=== PATIENT | male | born 1945 | race Caucasian/White ===

== ENCOUNTER → 2017-01-07 | Outpatient (REF) | payer MEDICARE, OTHER ==
[~2017-01-07] MED LIST: ADVI200C5 PO; ASPI81TA4 PO; CENTTAB PO; FLUTISP; LEVO125T3 PO; LIPI20TA PO; REST0.05 OU; VERA40TA PO; ZOMI5TAB4 PO; [UNRECOGNIZED DRUG - CODE] PO; claritan PO
[2017-01-07 16:19] LABS: ANION GAP 9 MEQ/L (8-16); BLOOD UREA NITROGEN 16 MG/DL (7-18); CALCIUM LEVEL 9.2 MG/DL (8.8-10.2); CARBON DIOXIDE LEVEL 27 MEQ/L (21-32); CHLORIDE LEVEL 107 MEQ/L (98-107); CREATININE FOR GFR 1.09 MG/DL (0.70-1.30); GLOMERULAR FILTRATION RATE > 60.0 (>42); GLUCOSE, FASTING 89 MG/DL (83-110); POTASSIUM SERUM 4.1 MEQ/L (3.5-5.1); SODIUM LEVEL 143 MEQ/L (136-145)
== END ==
LOC: M SFHCPLAZ 14:03
PROVIDERS: ATTEND Nurse Practitioner Family
DX: I10 Essential (primary) hypertension (principal)
CPT/HCPCS: 36415; 80048; 93005; G0463

== ENCOUNTER → 2017-02-14 | Outpatient (REF) | payer MEDICARE, OTHER ==
[2017-02-14 12:22] LABS: BASOPHILS 1 % (0-4)
[2017-02-14 12:36] LABS: ALBUMIN 3.9 GM/DL (3.2-5.2); ALBUMIN/GLOBULIN RATIO 1.34 (1.00-1.93); ALKALINE PHOSPHATASE 129 U/L (45-117); ALT/SGPT 26 U/L (12-78); ANION GAP 4 MEQ/L (8-16); AST/SGOT 16 U/L (15-37); BILIRUBIN,TOTAL 0.4 MG/DL (0.2-1.0); BLOOD UREA NITROGEN 12 MG/DL (7-18); CALCIUM LEVEL 9.1 MG/DL (8.8-10.2); CARBON DIOXIDE LEVEL 31 MEQ/L (21-32); CHLORIDE LEVEL 105 MEQ/L (98-107); CREATININE FOR GFR 1.03 MG/DL (0.70-1.30); GLOMERULAR FILTRATION RATE > 60.0 (>42); GLUCOSE, FASTING 72 MG/DL (83-110); SODIUM LEVEL 140 MEQ/L (136-145); TOTAL PROTEIN 6.8 GM/DL (6.4-8.2)
[2017-02-14 15:24] LABS: MEAN CORPUSCULAR HEMOGLOBIN 30.3 pg (27.0-33.0); MEAN CORPUSCULAR HGB CONC 33.1 g/dl (32.0-36.5); MEAN CORPUSCULAR VOLUME 91.4 fl (80.0-96.0); RED CELL DISTRIBUTION WIDTH 12.4 % (11.5-14.5)
== END ==
LOC: M SFHCPLAZ 10:04
PROVIDERS: ATTEND Family Medicine
DX: C91.10 Chronic lymphocytic leukemia of B-cell type not having achieved remission (principal); E55.9 Vitamin D deficiency, unspecified; N40.1 Benign prostatic hyperplasia with lower urinary tract symptoms
CPT/HCPCS: 36415; 80053; 82306; 83970; 85007; 85027; G0103; G0463

== ENCOUNTER → 2017-07-04 | Outpatient (REF) | payer MEDICARE, OTHER ==
[~2017-07-04] MED LIST changes: +ASPI81TA18 PO; -ASPI81TA4 PO; -LEVO125T3 PO; +LEVO125T4 PO; +ZOMI5TAB12 PO; -ZOMI5TAB4 PO
[2017-07-04 12:01] LABS: MEAN CORPUSCULAR HEMOGLOBIN 31.2 pg (27.0-33.0); MEAN CORPUSCULAR HGB CONC 34.3 g/dl (32.0-36.5); MEAN CORPUSCULAR VOLUME 90.9 fl (80.0-96.0); RED CELL DISTRIBUTION WIDTH 13.2 % (11.5-14.5); WHITE BLOOD COUNT 23.8 K/mm3 (4.0-10.0)
[2017-07-04 12:19] LABS: ALBUMIN/GLOBULIN RATIO 1.48 (1.00-1.93); ALKALINE PHOSPHATASE 116 U/L (45-117); ALT/SGPT 33 U/L (12-78); ANION GAP 10 MEQ/L (8-16); AST/SGOT 23 U/L (15-37); BILIRUBIN,TOTAL 0.4 MG/DL (0.2-1.0); BLOOD UREA NITROGEN 11 MG/DL (7-18); CALCIUM LEVEL 8.9 MG/DL (8.8-10.2); CARBON DIOXIDE LEVEL 25 MEQ/L (21-32); CHLORIDE LEVEL 107 MEQ/L (98-107); CHOLESTEROL LEVEL 121 MG/DL (<200); CREATININE FOR GFR 1.03 MG/DL (0.70-1.30); FREE T4 1.18 NG/DL (0.76-1.46); GLOMERULAR FILTRATION RATE > 60.0 (>42); GLUCOSE, FASTING 82 MG/DL (83-110); POTASSIUM SERUM 3.8 MEQ/L (3.5-5.1); SODIUM LEVEL 142 MEQ/L (136-145); TOTAL PROTEIN 6.7 GM/DL (6.4-8.2); TRIGLYCERIDES LEVEL 230 MG/DL (<150)
[2017-07-04 12:39] LABS: EOSINOPHILS 2 % (0-5)
[2017-07-04 13:40] LABS: SMUDGE CELLS 2+
[2017-07-05 14:17] LABS: PSA % FREE 26.8 % (.); PSA FREE 1.18 ng/mL; PSA TOTAL 4.4 ng/mL (0.0-4.0)
== END ==
LOC: M SFHCPLAZ 09:49
PROVIDERS: ATTEND Family Medicine
DX: C91.10 Chronic lymphocytic leukemia of B-cell type not having achieved remission (principal); E78.5 Hyperlipidemia, unspecified; E03.9 Hypothyroidism, unspecified; N40.1 Benign prostatic hyperplasia with lower urinary tract symptoms
CPT/HCPCS: 36415; 80053; 80061; 82550; 84154; 84439; 84443; 85007; 85027; 86140; G0463

== ENCOUNTER → 2017-10-21 | Outpatient (REF) | payer MEDICARE, OTHER ==
[2017-10-21 14:16] LABS: MEAN CORPUSCULAR HEMOGLOBIN 30.4 pg (27.0-33.0); MEAN CORPUSCULAR HGB CONC 32.7 g/dl (32.0-36.5); MEAN CORPUSCULAR VOLUME 92.9 fl (80.0-96.0); PLATELET COUNT, AUTOMATED 182 10^3/uL (150-450); RED CELL DISTRIBUTION WIDTH 12.7 % (11.5-14.5)
[2017-10-21 14:26] LABS: ADD MANUAL DIFFER YES; BLASTS POS FLAG; DIFF SLIDE NUMBER 286; POSITIVE DIFF POS FLAG; POSITIVE MORPH POS FLAG; WBC SCAT POS FLAG; WHITE BLOOD COUNT 26.8 10^3/uL (4.0-10.0)
[2017-10-21 14:44] LABS: ALBUMIN 4.2 GM/DL (3.2-5.2); ALBUMIN/GLOBULIN RATIO 1.35 (1.00-1.93); ALKALINE PHOSPHATASE 112 U/L (45-117); ALT/SGPT 33 U/L (12-78); ANION GAP 8 MEQ/L (8-16); AST/SGOT 18 U/L (7-37); BILIRUBIN,TOTAL 0.5 MG/DL (0.2-1.0); BLOOD UREA NITROGEN 13 MG/DL (7-18); CALCIUM LEVEL 9.4 MG/DL (8.8-10.2); CARBON DIOXIDE LEVEL 27 MEQ/L (21-32); CHLORIDE LEVEL 105 MEQ/L (98-107); CREATININE FOR GFR 1.03 MG/DL (0.70-1.30); FREE T4 1.08 NG/DL (0.76-1.46); GLOMERULAR FILTRATION RATE > 60.0 (>42); GLUCOSE, FASTING 80 MG/DL (83-110); SODIUM LEVEL 140 MEQ/L (136-145); TOTAL PROTEIN 7.3 GM/DL (6.4-8.2)
[2017-10-21 15:19] LABS: BASOPHILS 1 % (0-4); EOSINOPHILS 1 % (0-5)
[2017-10-21 15:20] LABS: SMUDGE CELLS 1+
[2017-10-23 00:06] LABS: (LD) FRACTION 1 25 % (17-32); (LD) FRACTION 2 37 % (25-40); (LD) FRACTION 3 22 % (17-27); (LD) FRACTION 4 8 % (5-13); (LD) FRACTION 5 8 % (4-20); LDH 166 IU/L (121-224)
== END ==
LOC: M SFHCPLAZ 10:47
PROVIDERS: ATTEND Family Medicine
DX: C91.10 Chronic lymphocytic leukemia of B-cell type not having achieved remission (principal); E03.9 Hypothyroidism, unspecified; E55.9 Vitamin D deficiency, unspecified; N40.1 Benign prostatic hyperplasia with lower urinary tract symptoms
CPT/HCPCS: 80053; 82306; 83625; 83970; 84153; 84439; 84443; 85025; G0463

== ENCOUNTER → 2018-02-11 | Outpatient (REF) | payer MEDICARE, OTHER ==
[2018-02-11 13:19] LABS: HEMATOCRIT 44.9 % (42.0-52.0); HEMOGLOBIN 14.5 g/dl (14.0-18.0); MEAN CORPUSCULAR HGB CONC 32.3 g/dl (32.0-36.5); MEAN CORPUSCULAR VOLUME 92.8 fl (80.0-96.0); PLATELET COUNT, AUTOMATED 139 10^3/uL (150-450); RED BLOOD COUNT 4.84 10^6/uL (4.30-6.10); RED CELL DISTRIBUTION WIDTH 12.7 % (11.5-14.5)
[2018-02-11 13:22] LABS: ADD MANUAL DIFFER YES; DIFF SLIDE NUMBER 243; POSITIVE DIFF POS FLAG; POSITIVE MORPH POS FLAG; WHITE BLOOD COUNT 27.2 10^3/uL (4.0-10.0)
[2018-02-11 13:50] LABS: PTH INTACT 48.8 PG/ML (18.5-88.0); TOTAL 25(OH) VITAMIN D 40.9 NG/ML (30.0-100.0)
[2018-02-11 13:52] LABS: ALBUMIN 4.3 GM/DL (3.2-5.2); ALBUMIN/GLOBULIN RATIO 1.43 (1.00-1.93); ALKALINE PHOSPHATASE 112 U/L (45-117); ALT/SGPT 62 U/L (12-78); ANION GAP 7 MEQ/L (8-16); AST/SGOT 36 U/L (7-37); BILIRUBIN,TOTAL 0.5 MG/DL (0.2-1.0); BLOOD UREA NITROGEN 14 MG/DL (7-18); CALCIUM LEVEL 8.8 MG/DL (8.8-10.2); CARBON DIOXIDE LEVEL 26 MEQ/L (21-32); CHLORIDE LEVEL 108 MEQ/L (98-107); CREATININE FOR GFR 1.06 MG/DL (0.70-1.30); FREE T4 1.11 NG/DL (0.76-1.46); GLOMERULAR FILTRATION RATE > 60.0 (>42); GLUCOSE, FASTING 85 MG/DL (70-100); POTASSIUM SERUM 4.2 MEQ/L (3.5-5.1); SODIUM LEVEL 141 MEQ/L (136-145); TOTAL PROTEIN 7.3 GM/DL (6.4-8.2)
[2018-02-11 14:22] LABS: ATYPICAL LYMPH 26 % (0-5); BASOPHILS 1 % (0-4); EOSINOPHILS 3 % (0-5); LYMPHOCYTES 50 % (16-52); MONOCYTES 3 % (0-8); NEUTROPHILS 17 % (35-75); PLATELET ESTIMATE DECREASED (NORMAL); SMUDGE CELLS 1+
== END ==
LOC: M SFHCPLAZ 11:26
DX: C91.10 Chronic lymphocytic leukemia of B-cell type not having achieved remission (principal); E03.9 Hypothyroidism, unspecified; E55.9 Vitamin D deficiency, unspecified
CPT/HCPCS: 84443

== ENCOUNTER → 2018-06-20 | Outpatient (REF) | payer MEDICARE, OTHER ==
[2018-06-20 12:08] LABS: HEMATOCRIT 43.2 % (42.0-52.0); MEAN CORPUSCULAR HEMOGLOBIN 30.4 pg (27.0-33.0); MEAN CORPUSCULAR HGB CONC 32.4 g/dl (32.0-36.5); MEAN CORPUSCULAR VOLUME 93.7 fl (80.0-96.0); PLATELET COUNT, AUTOMATED 152 10^3/uL (150-450); RED BLOOD COUNT 4.61 10^6/uL (4.30-6.10); RED CELL DISTRIBUTION WIDTH 13.1 % (11.5-14.5)
[2018-06-20 12:11] LABS: ADD MANUAL DIFFER YES; DIFF SLIDE NUMBER 191; POSITIVE DIFF POS FLAG; POSITIVE MORPH POS FLAG; WHITE BLOOD COUNT 27.9 10^3/uL (4.0-10.0)
[2018-06-20 12:21] LABS: ATYPICAL LYMPH 1 % (0-5); EOSINOPHILS 3 % (0-5); LYMPHOCYTES 88 % (16-52); NEUTROPHILS 8 % (35-75)
[2018-06-20 12:23] LABS: PLATELET ESTIMATE DECREASED (NORMAL); SMUDGE CELLS 1+
[2018-06-20 12:33] LABS: ALBUMIN/GLOBULIN RATIO 1.29 (1.00-1.93); ALKALINE PHOSPHATASE 94 U/L (45-117); ALT/SGPT 46 U/L (12-78); ANION GAP 8 MEQ/L (8-16); AST/SGOT 21 U/L (7-37); BILIRUBIN,TOTAL 0.4 MG/DL (0.2-1.0); BLOOD UREA NITROGEN 15 MG/DL (7-18); CARBON DIOXIDE LEVEL 26 MEQ/L (21-32); CHLORIDE LEVEL 108 MEQ/L (98-107); CREATININE FOR GFR 1.18 MG/DL (0.70-1.30); FREE T4 1.06 NG/DL (0.76-1.46); GLOMERULAR FILTRATION RATE > 60.0 (>42); GLUCOSE, FASTING 75 MG/DL (70-100); POTASSIUM SERUM 3.8 MEQ/L (3.5-5.1); PROSTATIC SPECIFIC AG MONITOR 4.14 NG/ML (< 4.0); SODIUM LEVEL 142 MEQ/L (136-145); TOTAL PROTEIN 7.1 GM/DL (6.4-8.2)
[2018-06-25 11:42] LABS: ALBUMIN 4.55 GM/DL (3.29-5.55); ALBUMIN % 64.1 % (55.8-66.1); ALPHA-1-GLOBULIN % 4.4 % (2.9-4.9); ALPHA-1-GLOBULINS 0.31 GM/DL (0.17-0.41); ALPHA-2-GLOBULINS % 9.8 % (7.1-11.8); BETA-1-GLOBULINS 0.42 GM/DL (0.28-0.60); BETA-1-GLOBULINS % 5.9 % (4.7-7.2); BETA-2-GLOBULINS % 4.2 % (3.2-6.5); GAMMA GLOBULIN % 11.6 % (11.1-18.8); GAMMA GLOBULINS 0.82 GM/DL (0.65-1.58)
== END ==
LOC: M SFHCPLAZ 10:39
DX: C91.10 Chronic lymphocytic leukemia of B-cell type not having achieved remission (principal); E03.9 Hypothyroidism, unspecified; N40.1 Benign prostatic hyperplasia with lower urinary tract symptoms; G43.009 Migraine without aura, not intractable, without status migrainosus
CPT/HCPCS: 84165

== ENCOUNTER → 2018-11-14 | Outpatient (REF) | payer MEDICARE, OTHER ==
[~2018-11-14] MED LIST changes: -ASPI81TA18 PO; +ASPI81TA52 PO
[2018-11-14 14:10] LABS: HEMATOCRIT 44.1 % (42.0-52.0); HEMOGLOBIN 14.4 g/dl (13.5-17.5); MEAN CORPUSCULAR HGB CONC 32.7 g/dl (32.0-36.5); MEAN CORPUSCULAR VOLUME 91.9 fl (80.0-96.0); PLATELET COUNT, AUTOMATED 146 10^3/uL (150-450)
[2018-11-14 14:20] LABS: ALBUMIN 4.2 GM/DL (3.2-5.2); ALT/SGPT 77 U/L (12-78); BILIRUBIN,TOTAL 0.4 MG/DL (0.2-1.0); BLOOD UREA NITROGEN 21 MG/DL (7-18); C REACTIVE PROTEIN QUANTITATIV < 0.30 MG/DL (0.00-0.30); CALCIUM LEVEL 9.3 MG/DL (8.8-10.2); CARBON DIOXIDE LEVEL 25 MEQ/L (21-32); CHLORIDE LEVEL 107 MEQ/L (98-107); CHOLESTEROL LEVEL 138 MG/DL (<200); CHOLESTEROL RISK RATIO 3.538 (<5); CPK CREATINE PHOSPHOKINASE 74 U/L (39-308); CREATININE FOR GFR 1.14 MG/DL (0.70-1.30); FREE T4 1.12 NG/DL (0.76-1.46); GLOMERULAR FILTRATION RATE > 60.0 (>42); GLUCOSE, FASTING 88 MG/DL (70-100); HDL CHOLESTEROL 39 MG/DL (>40); LDL CHOLESTEROL 64 MG/DL (<100); NON-HDL-C 99 MG/DL; POTASSIUM SERUM 3.8 MEQ/L (3.5-5.1); SODIUM LEVEL 140 MEQ/L (136-145); TOTAL PROTEIN 7.1 GM/DL (6.4-8.2); TRIGLYCERIDES LEVEL 174 MG/DL (<150)
[2018-11-14 14:22] LABS: TOTAL 25(OH) VITAMIN D 39.3 NG/ML (30.0-100.0); WHITE BLOOD COUNT 31.9 10^3/uL (4.0-10.0)
[2018-11-14 14:23] LABS: PTH INTACT 28.2 PG/ML (18.5-88.0)
[2018-11-14 14:51] LABS: EOSINOPHILS 4 % (0-5); LYMPHOCYTES 78 % (16-52); NEUTROPHILS 18 % (35-75)
[2018-11-14 14:52] LABS: PLATELET ESTIMATE NORMAL (NORMAL)
== END ==
LOC: M SFHCPLAZ 11:39
PROVIDERS: ATTEND Family Medicine
DX: Z12.5 Encounter for screening for malignant neoplasm of prostate (principal); E78.5 Hyperlipidemia, unspecified; E03.9 Hypothyroidism, unspecified; E55.9 Vitamin D deficiency, unspecified
CPT/HCPCS: 36415; 80053; 80061; 82306; 82550; 83970; 84439; 84443; 85025; 86140; G0463

== ENCOUNTER → 2019-05-19 | Outpatient (REF) | payer MEDICARE, OTHER ==
[~2019-05-19] MED LIST changes: +FLUT50SP12; -FLUTISP
[2019-05-19 12:09] LABS: HEMOGLOBIN 14.4 g/dl (13.5-17.5); MEAN CORPUSCULAR HGB CONC 32.7 g/dl (32.0-36.5); MEAN CORPUSCULAR VOLUME 94.8 fl (80.0-96.0); PLATELET COUNT, AUTOMATED 143 10^3/uL (150-450); RED BLOOD COUNT 4.64 10^6/uL (4.30-6.10)
[2019-05-19 12:10] LABS: WHITE BLOOD COUNT 33.1 10^3/uL (4.0-10.0)
[2019-05-19 12:24] LABS: ALT/SGPT 28 U/L (12-78); BILIRUBIN,TOTAL 0.3 MG/DL (0.2-1.0); BLOOD UREA NITROGEN 15 MG/DL (7-18); CALCIUM LEVEL 8.8 MG/DL (8.8-10.2); CARBON DIOXIDE LEVEL 25 MEQ/L (21-32); CHLORIDE LEVEL 110 MEQ/L (98-107); CREATININE FOR GFR 1.02 MG/DL (0.70-1.30); GLOMERULAR FILTRATION RATE > 60.0 (>42); GLUCOSE, FASTING 73 MG/DL (70-100); POTASSIUM SERUM 3.8 MEQ/L (3.5-5.1); SODIUM LEVEL 141 MEQ/L (136-145); URIC ACID 4.3 MG/DL (3.5-7.2)
[2019-05-19 12:32] LABS: EOSINOPHILS 1 % (0-5); LYMPHOCYTES 87 % (16-52); MONOCYTES 2 % (0-8); NEUTROPHILS 10 % (35-75)
[2019-05-19 12:35] LABS: PLATELET ESTIMATE DECREASED (NORMAL); SMUDGE CELLS 1+
== END ==
LOC: M SFHCPLAZ 09:57
PROVIDERS: ATTEND Family Medicine
DX: C91.10 Chronic lymphocytic leukemia of B-cell type not having achieved remission (principal); Z12.5 Encounter for screening for malignant neoplasm of prostate; Z23 Encounter for immunization
CPT/HCPCS: 36415; 80053; 83625; 84550; 85025; 90732; G0009; G0103; G0463

== ENCOUNTER → 2019-11-16 | Outpatient (REF) | payer MEDICARE, OTHER ==
[2019-11-16 18:17] LABS: HEMATOCRIT 43.4 % (42.0-52.0); HEMOGLOBIN 14.2 g/dl (13.5-17.5); MEAN CORPUSCULAR HEMOGLOBIN 30.6 pg (27.0-33.0); MEAN CORPUSCULAR HGB CONC 32.7 g/dl (32.0-36.5); MEAN CORPUSCULAR VOLUME 93.5 fl (80.0-96.0); PLATELET COUNT, AUTOMATED 146 10^3/uL (150-450); RED BLOOD COUNT 4.64 10^6/uL (4.30-6.10)
[2019-11-16 18:20] LABS: WHITE BLOOD COUNT 38.6 10^3/uL (4.0-10.0)
[2019-11-16 18:32] LABS: ALT/SGPT 26 U/L (12-78); BILIRUBIN,TOTAL 0.5 MG/DL (0.2-1.0); BLOOD UREA NITROGEN 15 MG/DL (7-18); CALCIUM LEVEL 9.1 MG/DL (8.8-10.2); CARBON DIOXIDE LEVEL 24 MEQ/L (21-32); CHLORIDE LEVEL 106 MEQ/L (98-107); CHOLESTEROL LEVEL 131 MG/DL (<200); CHOLESTEROL RISK RATIO 3.852 (<5); CREATININE FOR GFR 1.19 MG/DL (0.70-1.30); FREE T4 1.12 NG/DL (0.76-1.46); GLOMERULAR FILTRATION RATE > 60.0 (>42); GLUCOSE, FASTING 79 MG/DL (70-100); HDL CHOLESTEROL 34 MG/DL (>40); LDL CHOLESTEROL 76 MG/DL (<100); NON-HDL-C 97 MG/DL; POTASSIUM SERUM 3.8 MEQ/L (3.5-5.1); PTH INTACT 38.9 PG/ML (18.5-88.0); SODIUM LEVEL 139 MEQ/L (136-145); TOTAL 25(OH) VITAMIN D 41.4 NG/ML (30.0-100.0); TRIGLYCERIDES LEVEL 105 MG/DL (<150)
[2019-11-16 19:17] LABS: ATYPICAL LYMPH 28 % (0-5); EOSINOPHILS 1 % (0-3); LYMPHOCYTES 54 % (16-44); MONOCYTES 1 % (0-5); NEUTROPHILS 18 % (28-66)
[2019-11-16 19:18] LABS: SMUDGE CELLS 1+
[2019-11-16 19:19] LABS: PLATELET ESTIMATE NORMAL (NORMAL)
== END ==
LOC: M SFHCPLAZ 15:19
PROVIDERS: ATTEND Family Medicine
DX: C91.10 Chronic lymphocytic leukemia of B-cell type not having achieved remission (principal); E03.9 Hypothyroidism, unspecified; N18.3 Chronic kidney disease, stage 3 (moderate); E55.9 Vitamin D deficiency, unspecified; E78.5 Hyperlipidemia, unspecified
CPT/HCPCS: 36415; 80053; 80061; 82306; 83625; 83970; 84439; 84443; 85025; G0463

== ENCOUNTER → 2019-11-24 | Outpatient (CLI) | payer MEDICARE, OTHER ==
[~2019-11-24] MED LIST changes: +GASTROGRAFIN SOLUTION 30ML (Q9963) As Ordered ONE; +ISOVUE-370 76% 100ML VIAL (Q9967) As Ordered ONE
--- NOTE | 2019-11-24 16:56 | REP ---
CT chest with IV contrast: History: Chronic lymphocytic leukemia. Comparison chest CT study December 03, 2012. CT contrast dose: 75 mL of intravenous Isovue [address] findings: There is no evidence of hilar or mediastinal mass or adenopathy. No supraclavicular or axillary adenopathy is appreciated. Normal appearing fat replaced lymph nodes are seen in each axilla. No adrenal lesion is seen. Thoracic aorta shows no evidence of aneurysm or dissection. No filling defect is seen in the pulmonary arterial tree. There is some minimal linear fibrosis in the left lower lobe unchanged from the 2013 prior study. No infiltrate, mass, or significant pulmonary edema is appreciated. There are mild linear fibrotic changes in the right lower lobe as well. No bony destructive lesion is seen. Impression: No evidence of mass or adenopathy. Bilateral lower lobe linear fibrosis unchanged. Otherwise negative. Electronically Signed by Ar Mata MD 11/24/2019 06:23 P
--- NOTE | 2019-11-24 17:03 | REP ---
CT abdomen and pelvis with IV and oral contrast: History: Chronic lymphocytic leukemia. Comparison CT study is from December 03, 2012. CT contrast dose: 75 mL of intravenous Isovue. CT findings: The spleen is mildly enlarged and is a little larger than it was in November 2012. It measures 14.7 cm in greatest transverse dimension, previously this dimension was 12.5 cm. No focal splenic lesion is appreciated. The liver is normal in size and homogeneous in texture. No abnormalities noted in the gallbladder or the pancreas. There is a descending duodenal diverticulum. Prior study showed intrarenal calculi in the right kidney. Because of the timing postcontrast, it is difficult to comment. There is no evidence of hydronephrosis however on either side. There is a cyst in the lower pole of the right kidney measuring 1.6 cm in diameter which was present previously. No renal mass lesion is observed. There is no retroperitoneal lymphadenopathy. No mesenteric adenopathy is appreciated. There is diverticulosis affecting the sigmoid colon without CT evidence of diverticulitis. The prostate gland remains enlarged. No pelvic or inguinal adenopathy is appreciated. No abdominal wall defect is seen. A normal appendix is seen in the right lower quadrant. Bone window settings show no bony destructive lesion. Impression: Mild splenomegaly, slightly increased in size from the [address] study. No abdominal mass or adenopathy seen. Prostate gland remains enlarged. Left colonic diverticulosis is seen. Electronically Signed by Ar Mata MD 11/24/2019 06:23 P
--- NOTE | 2019-11-24 18:01 | REP ---
Soft-tissue neck CT study: History: Chronic lymphocytic leukemia. CT contrast dose: 75 ml of intravenous Isovue 370. CT findings: No intraorbital abnormality is seen. The visualized paranasal sinuses are clear. Parotid and submandibular glands are normal and symmetric. Thyroid lobes are homogeneous and small. There are scattered normal cervical lymph nodes. There are several slightly hypertrophic submental lymph nodes. The largest of these is on the left. This measures 11 x 24 x 12 mm. There are two or three smaller submental lymph nodes on the left and right. Glottic and subglottic airway are unremarkable. No vascular abnormality is observed. Bone window settings show mild degenerative spondylosis changes. No significant bony abnormality is appreciated. Impression: There are slightly prominent lymph nodes in the submental region consistent with mild submental adenopathy bilaterally. No other evidence of adenopathy or mass. Electronically Signed by Ar Mata MD 11/24/2019 06:25 P
== END ==
LOC: M RAD 14:41
PROVIDERS: ATTEND Family Medicine
DX: R91.8 Other nonspecific abnormal finding of lung field (principal); R59.9 Enlarged lymph nodes, unspecified; R16.1 Splenomegaly, not elsewhere classified; N40.1 Benign prostatic hyperplasia with lower urinary tract symptoms; K57.30 Diverticulosis of large intestine without perforation or abscess without bleeding; C91.10 Chronic lymphocytic leukemia of B-cell type not having achieved remission
CPT/HCPCS: 70491; 71260; 74177; Q9963; Q9967

== ENCOUNTER → 2020-04-19 | Outpatient (REF) | payer MEDICARE, OTHER ==
[~2020-04-19] MED LIST changes: -GASTROGRAFIN SOLUTION 30ML (Q9963) As Ordered ONE; -ISOVUE-370 76% 100ML VIAL (Q9967) As Ordered ONE
[2020-04-19 13:16] LABS: HEMATOCRIT 42.6 % (42.0-52.0); HEMOGLOBIN 13.7 g/dl (13.5-17.5); MEAN CORPUSCULAR HGB CONC 32.2 g/dl (32.0-36.5); MEAN CORPUSCULAR VOLUME 93.4 fl (80.0-96.0); PLATELET COUNT, AUTOMATED 142 10^3/uL (150-450); RED BLOOD COUNT 4.56 10^6/uL (4.30-6.10)
[2020-04-19 13:46] LABS: ALBUMIN 4.1 GM/DL (3.2-5.2); ALT/SGPT 29 U/L (12-78); BILIRUBIN,TOTAL 0.4 MG/DL (0.2-1.0); BLOOD UREA NITROGEN 16 MG/DL (7-18); CALCIUM LEVEL 9.4 MG/DL (8.8-10.2); CARBON DIOXIDE LEVEL 29 MEQ/L (21-32); CHLORIDE LEVEL 104 MEQ/L (98-107); CREATININE FOR GFR 1.09 MG/DL (0.70-1.30); FREE T4 1.23 NG/DL (0.76-1.46); GLOMERULAR FILTRATION RATE > 60.0 (>42); GLUCOSE, FASTING 89 MG/DL (70-100); LDH LACTATE DEHYDROGENASE 148 U/L (87-241); SODIUM LEVEL 139 MEQ/L (136-145); TOTAL PROTEIN 6.9 GM/DL (6.4-8.2)
[2020-04-19 14:16] LABS: ATYPICAL LYMPH 52 % (0-5); EOSINOPHILS 2 % (0-3); LYMPHOCYTES 32 % (16-44); MONOCYTES 3 % (0-5); NEUTROPHILS 11 % (28-66); PLATELET ESTIMATE DECREASED (NORMAL)
== END ==
LOC: M SFHCPLAZ 10:47
PROVIDERS: ATTEND Family Medicine
DX: C91.10 Chronic lymphocytic leukemia of B-cell type not having achieved remission (principal); E03.9 Hypothyroidism, unspecified; Z12.5 Encounter for screening for malignant neoplasm of prostate; Z23 Encounter for immunization
CPT/HCPCS: 36415; 80053; 83615; 84439; 84443; 85025; 90471; G0103; G0463

== ENCOUNTER → 2020-10-07 | Outpatient (REF) | payer MEDICARE, OTHER ==
[2020-10-07 13:59] LABS: HEMATOCRIT 43.7 % (42.0-52.0); HEMOGLOBIN 13.9 g/dl (13.5-17.5); MEAN CORPUSCULAR HEMOGLOBIN 29.6 pg (27.0-33.0); MEAN CORPUSCULAR HGB CONC 31.8 g/dl (32.0-36.5); PLATELET COUNT, AUTOMATED 145 10^3/uL (150-450)
[2020-10-07 14:06] LABS: WHITE BLOOD COUNT 48.2 10^3/uL (4.0-10.0)
[2020-10-07 14:13] LABS: ATYPICAL LYMPH 40 % (0-5); BASOPHILS 1 % (0-1); EOSINOPHILS 1 % (0-3); LYMPHOCYTES 52 % (16-44); NEUTROPHILS 6 % (28-66); PLATELET ESTIMATE NORMAL (NORMAL)
[2020-10-07 14:36] LABS: ALBUMIN 4.1 GM/DL (3.2-5.2); ALT/SGPT 42 U/L (12-78); BILIRUBIN,TOTAL 0.4 MG/DL (0.2-1.0); BLOOD UREA NITROGEN 15 MG/DL (7-18); CALCIUM LEVEL 9.1 MG/DL (8.8-10.2); CARBON DIOXIDE LEVEL 28 MEQ/L (21-32); CHLORIDE LEVEL 107 MEQ/L (98-107); CHOLESTEROL LEVEL 114 MG/DL (<200); CHOLESTEROL RISK RATIO 3.257 (<5); CPK CREATINE PHOSPHOKINASE 80 U/L (39-308); CREATININE FOR GFR 1.15 MG/DL (0.70-1.30); FREE T4 1.15 NG/DL (0.76-1.46); GLOMERULAR FILTRATION RATE > 60.0 (>42); GLUCOSE, FASTING 82 MG/DL (70-100); HDL CHOLESTEROL 35 MG/DL (>40); LDL CHOLESTEROL 60 MG/DL (<100); NON-HDL-C 79 MG/DL; POTASSIUM SERUM 4.1 MEQ/L (3.5-5.1); SODIUM LEVEL 140 MEQ/L (136-145); TOTAL PROTEIN 7.2 GM/DL (6.4-8.2); TRIGLYCERIDES LEVEL 97 MG/DL (<150)
[2020-10-10 19:06] LABS: PSA % FREE 26.3 % (.); PSA FREE 1.21 ng/mL; PSA TOTAL 4.6 ng/mL (0.0-4.0)
== END ==
LOC: M SFHCPLAZ 11:22
PROVIDERS: ATTEND Family Medicine
DX: C91.10 Chronic lymphocytic leukemia of B-cell type not having achieved remission (principal); E78.5 Hyperlipidemia, unspecified; N18.30 Chronic kidney disease, stage 3 unspecified; E03.9 Hypothyroidism, unspecified; Z12.5 Encounter for screening for malignant neoplasm of prostate
CPT/HCPCS: 36415; 80053; 80061; 82550; 83625; 84154; 84439; 84443; 85025; 86140; G0463

== ENCOUNTER → 2021-02-01 | Outpatient (CLI) | payer MEDICARE, OTHER ==
[~2021-02-01] MED LIST changes: +ADVI200T PO; +AIMO70IN2 SQ; +ASPI81CH33 PO; +ASPI81TA26 PO; +AZEL1SPR3 NARES; +CENT1TAB PO; +CLAR10CA3 PO; +CLAR5TAB7 PO; +FLUTISP; +LEVO137C PO; +MIRA3350 PO; +OCUVTAB4 PO; +VERA120T4 PO
== END ==
LOC: M LABSMTC 10:27
PROVIDERS: ATTEND Anesthesiology
DX: Z01.812 Encounter for preprocedural laboratory examination (principal); Z20.822 Contact with and (suspected) exposure to COVID-19

== ENCOUNTER → 2021-02-02 | Outpatient (REF) | payer MEDICARE, OTHER ==
[2021-02-02 15:53] LABS: HEMATOCRIT 45.8 % (42.0-52.0); HEMOGLOBIN 14.7 g/dl (13.5-17.5); MEAN CORPUSCULAR HEMOGLOBIN 29.9 pg (27.0-33.0); MEAN CORPUSCULAR HGB CONC 32.1 g/dl (32.0-36.5); MEAN CORPUSCULAR VOLUME 93.1 fl (80.0-96.0); PLATELET COUNT, AUTOMATED 151 10^3/uL (150-450); RED BLOOD COUNT 4.92 10^6/uL (4.30-6.10)
[2021-02-02 15:55] LABS: WHITE BLOOD COUNT 61.3 10^3/uL (4.0-10.0)
[2021-02-02 16:33] LABS: ALBUMIN 4.3 GM/DL (3.2-5.2); ALT/SGPT 36 U/L (12-78); BILIRUBIN,TOTAL 0.4 MG/DL (0.2-1.0); BLOOD UREA NITROGEN 17 MG/DL (7-18); CALCIUM LEVEL 9.3 MG/DL (8.8-10.2); CARBON DIOXIDE LEVEL 28 MEQ/L (21-32); CHLORIDE LEVEL 106 MEQ/L (98-107); CREATININE FOR GFR 1.09 MG/DL (0.70-1.30); FREE T4 1.28 NG/DL (0.76-1.46); GLOMERULAR FILTRATION RATE > 60.0 (>42); GLUCOSE, FASTING 90 MG/DL (70-100); SODIUM LEVEL 140 MEQ/L (136-145); TOTAL PROTEIN 7.3 GM/DL (6.4-8.2)
[2021-02-02 16:59] LABS: PTH INTACT 46.2 PG/ML (18.5-88.0); TOTAL 25(OH) VITAMIN D 36.9 NG/ML (30.0-100.0)
[2021-02-02 17:59] LABS: ATYPICAL LYMPH 61 % (0-5); EOSINOPHILS 2 % (0-3); LYMPHOCYTES 22 % (16-44); MONOCYTES 2 % (0-5); NEUTROPHILS 13 % (28-66)
[2021-02-02 18:00] LABS: SMUDGE CELLS 2+
[2021-02-02 18:01] LABS: PLATELET ESTIMATE DECREASED (NORMAL)
== END ==
LOC: M SFHCPLAZ 12:04
PROVIDERS: ATTEND Family Medicine
DX: C91.10 Chronic lymphocytic leukemia of B-cell type not having achieved remission (principal); E55.9 Vitamin D deficiency, unspecified; E03.9 Hypothyroidism, unspecified; Z12.5 Encounter for screening for malignant neoplasm of prostate
CPT/HCPCS: 36415; 80053; 82306; 83625; 83970; 84439; 84443; 85025; G0103; G0463

== ENCOUNTER 2021-02-06 08:38 | Day surgery (SDC) | payer MEDICARE, OTHER ==
[~2021-02-06] VITALS: Ht 172.7 cm; Wt 88.9 kg
[~2021-02-06 08:38] MED LIST changes: +NS 1,000 ML IV ONE
[2021-02-06] MEDS ORDERED: propofoL 200 MG/20 ML VIAL As Ordered ONE (09:33)
[2021-02-06] MEDS ORDERED: LIDOCAINE 2% 100MG/5ML SDV (FOR ANES.) As Ordered ONE (09:52)
--- NOTE | 2021-02-06 09:54 | ROOR ---
Patient Name: Barbaar Pop Procedure Date: 02/06/2021 9:29 AM Date of : 1945 Age: 75 Room: [facility] Gender: Male Note Status: Finalized Procedure: Colonoscopy Indications: High risk colon cancer surveillance: Personal history of colonic polyps Providers: Leonel ADAMSON MD Referring MD: Jamal Cheema MD Requesting Provider: Medicines: Monitored Anesthesia Care Complications: No immediate complications. Procedure: Pre-Anesthesia Assessment: - The heart rate, respiratory rate, oxygen saturations, blood pressure, adequacy of pulmonary ventilation, and response to care were monitored throughout the procedure. The Colonoscope was introduced through the anus and advanced to the cecum, identified by appendiceal orifice and ileocecal valve. The colonoscopy was performed without difficulty. The patient tolerated the procedure well. The quality of the bowel preparation was good. Findings: The perianal and digital rectal examinations were normal. Five sessile polyps were found in the sigmoid colon, splenic flexure and hepatic flexure. The polyps were diminutive in size. These polyps were removed with a cold snare. Resection and retrieval were complete. Mild sigmoid diverticulosis and small internal hemorrhoids. The exam was otherwise without abnormality on direct and retroflexion views. Impression: - Five diminutive polyps in the sigmoid colon, at the splenic flexure and at the hepatic flexure, removed with a cold snare. Resected and retrieved. - Mild sigmoid diverticulosis and small internal hemorrhoids. - The examination was otherwise normal on direct and retroflexion views. Recommendation: - Repeat colonoscopy in 3 years for surveillance. Procedure Code(s): --- Professional --- 41073, Colonoscopy, flexible; with removal of tumor(s), polyp(s), or other lesion(s) by snare technique Diagnosis Code(s): --- Professional --- K63.5, Polyp of colon Z86.010, Personal history of colonic polyps CPT copyright 2019 [employer]. All rights reserved. The codes documented in this report are preliminary and upon cloth stretcher review may be revised to meet current compliance requirements. Leonel Adamson MD Leonel ADAMSON MD 02/06/2021 9:53:49 AM Electronically signed by Leonel ADAMSON MD Number of Addenda: 0 Note Initiated On: 02/06/2021 9:29 AM Estimated Blood Loss: Estimated blood loss: none.
[2021-02-06 10:21] VITALS: BP 132/65
== END 2021-02-06 10:22 | disposition home or self-care (01) ==
LOC: M OPP 08:38
PROVIDERS: ATTEND Internal Medicine Gastroenterology
DX: Z12.11 Encounter for screening for malignant neoplasm of colon (principal); Z86.010 Personal history of colon polyps; D12.3 Benign neoplasm of transverse colon; E03.9 Hypothyroidism, unspecified; Z79.82 Long term (current) use of aspirin; Z79.899 Other long term (current) drug therapy; Z88.2 Allergy status to sulfonamides; Z87.891 Personal history of nicotine dependence

== ENCOUNTER → 2021-02-17 | Outpatient (CLI) | payer MEDICARE, OTHER ==
[~2021-02-17] MED LIST changes: +GASTROGRAFIN SOLUTION 30ML (Q9963) As Ordered ONE; +ISOVUE-370 76% 100ML VIAL As Ordered ONE; -NS 1,000 ML IV ONE
--- NOTE | 2021-02-17 16:57 | REP ---
INDICATION: CLL. COMPARISON: 11/24/2019. TECHNIQUE: Chest CT with IV contrast. FINDINGS: According to the prior study patient has a history of chronic lymphocytic leukemia. There is no adenopathy at the thoracic inlet or mediastinum. This is unchanged. There are borderline enlarged nodes in both right and left kush measuring up to 10 mm short axis, stable and unchanged. There is no axillary lymphadenopathy on the right or the left, as previously. There are normal lymph nodes with fat replaced kush as previously. There are no lung nodules or masses. There are no infiltrates or pleural effusions. There is minor dependent atelectasis posteriorly. There is minor fibrillar scarring in the lower lobes, unchanged. The thoracic aorta is unremarkable. Cardiac size normal. There is no pericardial effusion. No pleural effusion. Upper abdomen: The spleen measures 16 cm AP and is enlarged. It measured 15 cm previously. The hepatic parenchyma is splenic parenchyma are home a homogeneous. The gallbladder and pancreas are unremarkable. The adrenals and renal upper poles are unremarkable except for a nonobstructive right renal calculus, unchanged. IMPRESSION: There is no significant interval change. There is splenomegaly, unchanged. There are borderline enlarged hilar nodes bilaterally, unchanged. There is a nonobstructive right renal calculus, unchanged. Otherwise, negative CT study of the chest. <Electronically signed by Alec Sadler > 02/17/21 [id number]
--- NOTE | 2021-02-17 17:16 | REP ---
INDICATION: CLL. COMPARISON: Abdomen/pelvis CT dated 11/24/2019. TECHNIQUE: Abdomen/pelvis CT with IV and bowel contrast. FINDINGS: The hepatic parenchyma is homogeneous. The spleen is normal size. The gallbladder and pancreas are unremarkable. Spleen is enlarged as previously today measuring 16 cm transverse (previously 15 cm. Spleen is homogeneous and otherwise unremarkable. The adrenals are unremarkable. The kidneys are unremarkable. Timing of the scanning with contrast precludes evaluation for renal calculi. However, there is no hydronephrosis or hydroureter. No perinephric stranding. There is a Bosniak type 1 1.6 cm right renal lower pole cyst, unchanged. Abdominal aorta is unremarkable. There is no periaortic adenopathy or mass. Bowel and mesentery are unremarkable except for sigmoid colon diverticulosis without diverticulitis, unchanged. Pelvis: The prostate is enlarged, unchanged. There is no adenopathy or ascites. Bladder is unremarkable. There are no lytic, blastic or destructive skeletal changes. 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 IMPRESSION: Splenomegaly that has slightly increased. No retroperitoneal or mesenteric adenopathy or mass. Enlarged prostate, unchanged. Sigmoid colon diverticulosis without diverticulitis, unchanged. <Electronically signed by Alec Sadler > 02/17/21 [id number]
== END ==
LOC: M RAD 12:27
PROVIDERS: ATTEND Family Medicine
DX: C91.10 Chronic lymphocytic leukemia of B-cell type not having achieved remission (principal)
CPT/HCPCS: 71260; 74177; Q9963; Q9967

== ENCOUNTER 2021-04-22 04:31 | Emergency (ER) | payer MEDICARE, OTHER ==
[~2021-04-22] VITALS: Ht 172.7 cm; Wt 86.4 kg
[~2021-04-22 04:31] MED LIST changes: -GASTROGRAFIN SOLUTION 30ML (Q9963) As Ordered ONE; -ISOVUE-370 76% 100ML VIAL As Ordered ONE
[2021-04-22 05:04] LABS: HEMATOCRIT 45.6 % (42.0-52.0); HEMOGLOBIN 14.9 g/dl (13.5-17.5); MEAN CORPUSCULAR HEMOGLOBIN 30.2 pg (27.0-33.0); MEAN CORPUSCULAR HGB CONC 32.7 g/dl (32.0-36.5); MEAN CORPUSCULAR VOLUME 92.3 fl (80.0-96.0); PLATELET COUNT, AUTOMATED 158 10^3/uL (150-450); RED BLOOD COUNT 4.94 10^6/uL (4.30-6.10)
[2021-04-22 05:08] LABS: WHITE BLOOD COUNT 49.4 10^3/uL (4.0-10.0)
[2021-04-22 05:13] LABS: PARTIAL THROMBOPLASTIN TIME 32.6 SECONDS (24.2-38.5); PROTHROMBIN TIME 13.4 SECONDS (12.5-14.3)
[2021-04-22 05:20] LABS: ANISOCYTOSIS 1+; ATYPICAL LYMPH 51 % (0-5); LYMPHOCYTES 29 % (16-44); MONOCYTES 4 % (0-5); NEUTROPHILS 16 % (28-66); PLATELET ESTIMATE NORMAL (NORMAL); SMUDGE CELLS 2+
[2021-04-22 05:39] LABS: ALBUMIN 3.7 GM/DL (3.2-5.2); BILIRUBIN,DIRECT 0.1 MG/DL (0.0-0.2); BILIRUBIN,TOTAL 0.6 MG/DL (0.2-1.0); TOTAL PROTEIN 7.9 GM/DL (6.4-8.2)
[2021-04-22] MEDS ORDERED: ONDANSETRON 4MG/2ML VIAL IV ONE (06:25)
[2021-04-22] MEDS ORDERED: MORPHINE 4 MG/ML 1ML VIAL/SYRINGE (J2270) IV ONE (06:25)
[2021-04-22] MEDS ORDERED: NS 1,000 ML IV ONE (06:25)
[2021-04-22] MEDS ORDERED: ISOVUE-370 76% 100ML VIAL As Ordered ONE (06:35)
--- NOTE | 2021-04-22 07:51 | REPVR ---
PROCEDURE INFORMATION: Exam: CT Abdomen And Pelvis With Contrast Exam date and time: 04/22/2021 6:49 AM Age: 75 years old Clinical indication: Abdominal pain; Localized; Right; Additional info: Distension of the abd, bulge/firm area R flank, bloody stool TECHNIQUE: Imaging protocol: Computed tomography of the abdomen and pelvis with contrast. Radiation optimization: All CT scans at this facility use at least one of these dose optimization techniques: automated exposure control; mA and/or kV adjustment per patient size (includes targeted exams where dose is matched to clinical indication); or iterative reconstruction. Contrast material: ISOVUE 370; Contrast volume: 100 ml; Contrast route: INTRAVENOUS (IV); COMPARISON: CT ABD PELVIS WITH CONTRAST 02/17/2021 2:53 PM FINDINGS: Liver: No mass. Gallbladder and bile ducts: No calcified stones. No ductal dilation. Pancreas: No ductal dilation. Spleen: Persistent moderate splenomegaly. Adrenal glands: No mass. Kidneys and ureters: Unchanged nonobstructing right superior renal calculus and several smaller right inferior renal calculi. No hydronephrosis. Simple right renal cyst. Stomach and bowel: Small duodenal diverticulum. There are findings of acute colitis with wall thickening/edema, mucosal hyperemia and pericolonic inflammation extending from the cecum through the sigmoid colon and rectum. The greatest area of inflammation appears to be the cecum, which does abut the lateral abdominal wall peritoneal surface. Colonic diverticulosis is present. No bowel obstruction. Appendix: No evidence of appendicitis. Intraperitoneal space: No free air. No significant fluid collection. Vasculature: Mild aortic and branch vessel atherosclerosis. Lymph nodes: No enlarged lymph nodes. Urinary bladder: Fatty infiltration within portions of the urinary bladder wall likely secondary to old inflammation or chronic outlet obstruction. Reproductive: Markedly enlarged prostate again noted. Bones/joints: No acute fracture. Soft tissues: Small fat containing bilateral inguinal hernias. IMPRESSION: 1. Acute pancolitis with more pronounced inflammation of the cecum which does abut the peritoneal surface and could contribute to the described clinical symptoms. No evidence of perforation. 2. Persistent splenomegaly COMMENTS: Consistent with the [employer]'s Incidental Findings Committee white paper (J Am Ron Radiol 2018): Any incidental renal lesion less than 1 cm or classified as too small to characterize, or any incidental cystic renal lesion characterized as simple-appearing, is likely benign. No follow-up imaging is recommended for these lesions per consensus recommendations based on imaging criteria. Electronically signed by: Kei Guevara On 04/22/2021 07:51:11 AM
[2021-04-22] MEDS ORDERED: MORPHINE 2 MG/ML 1ML VIAL (J2270) IV ONE (08:15)
[2021-04-22] MEDS ORDERED: CIPR-249 PO (08:16)
[2021-04-22] MEDS ORDERED: FLAG500T PO (08:16)
[2021-04-22 08:44] VITALS: BP 142/64
== END 2021-04-22 09:00 | disposition home or self-care (01) ==
LOC: M ED 04:31
DX: K51.00 Ulcerative (chronic) pancolitis without complications (principal); R16.1 Splenomegaly, not elsewhere classified; C91.10 Chronic lymphocytic leukemia of B-cell type not having achieved remission; E03.9 Hypothyroidism, unspecified; Z79.899 Other long term (current) drug therapy; Z79.82 Long term (current) use of aspirin; Z79.890 Hormone replacement therapy; Z88.1 Allergy status to other antibiotic agents; Z88.2 Allergy status to sulfonamides
CPT/HCPCS: 74177; 80047; 80076; 83690; 85025; 85610; 85730; 86850; 86900; 86901; 93041; 94760; 96361; 96374; 96375; 96376; 99285; J2270; J2405; Q9967

== ENCOUNTER 2021-04-23 01:47 | Emergency (ER) | payer MEDICARE, OTHER ==
[~2021-04-23] VITALS: Ht 172.7 cm; Wt 87.4 kg
[2021-04-23 01:48] VITALS: BP 142/67
== END 2021-04-23 03:13 | disposition left against medical advice (07) ==
LOC: M ED 01:47
DX: Z53.21 Procedure and treatment not carried out due to patient leaving prior to being seen by health care provider (principal)

== ENCOUNTER → 2021-04-23 | Outpatient (REF) | payer MEDICARE, OTHER ==
[~2021-04-23] MED LIST changes: +CIPR-249 PO; +FLAG500T PO
== END ==
LOC: M LAB REF 12:38
PROVIDERS: ATTEND Physician Assistant Medical
DX: K51.00 Ulcerative (chronic) pancolitis without complications (principal)

== ENCOUNTER → 2021-07-04 | Outpatient (CLI) | payer MEDICARE, OTHER ==
[2021-07-04 15:21] LABS: MEAN CORPUSCULAR HEMOGLOBIN 29.9 pg (27.0-33.0); MEAN CORPUSCULAR HGB CONC 31.8 g/dl (32.0-36.5); MEAN CORPUSCULAR VOLUME 93.8 fl (80.0-96.0); PLATELET COUNT, AUTOMATED 149 10^3/uL (150-450); RED BLOOD COUNT 4.69 10^6/uL (4.30-6.10)
[2021-07-04 15:33] LABS: WHITE BLOOD COUNT 46.5 10^3/uL (4.0-10.0)
[2021-07-04 15:43] LABS: ALBUMIN 4.1 GM/DL (3.2-5.2); ALT/SGPT 34 U/L (12-78); BILIRUBIN,TOTAL 0.5 MG/DL (0.2-1.0); BLOOD UREA NITROGEN 13 MG/DL (7-18); CALCIUM LEVEL 9.1 MG/DL (8.8-10.2); CARBON DIOXIDE LEVEL 26 MEQ/L (21-32); CHLORIDE LEVEL 106 MEQ/L (98-107); CREATININE FOR GFR 0.93 MG/DL (0.70-1.30); FREE T4 1.35 NG/DL (0.76-1.46); GLOMERULAR FILTRATION RATE > 60.0 (>42); GLUCOSE, FASTING 84 MG/DL (70-100); POTASSIUM SERUM 3.7 MEQ/L (3.5-5.1); SODIUM LEVEL 138 MEQ/L (136-145); TOTAL PROTEIN 6.9 GM/DL (6.4-8.2)
[2021-07-04 18:23] LABS: ATYPICAL LYMPH 61 % (0-5); EOSINOPHILS 1 % (0-3); LYMPHOCYTES 24 % (16-44); NEUTROPHILS 14 % (28-66)
[2021-07-04 18:25] LABS: PLATELET ESTIMATE DECREASED (NORMAL); SMUDGE CELLS 2+
[2021-07-07 19:07] LABS: PSA % FREE 22.7 % (.); PSA FREE 1.11 ng/mL; PSA TOTAL 4.9 ng/mL (0.0-4.0)
== END ==
LOC: M PLALAB 13:52
PROVIDERS: ATTEND Family Medicine
DX: C91.10 Chronic lymphocytic leukemia of B-cell type not having achieved remission (principal); E03.9 Hypothyroidism, unspecified; Z12.5 Encounter for screening for malignant neoplasm of prostate
CPT/HCPCS: 36415; 80053; 83625; 84154; 84439; 84443; 85025; G0463

== ENCOUNTER → 2021-11-21 | Outpatient (CLI) | payer MEDICARE, OTHER ==
[~2021-11-21] MED LIST changes: -VERA120T4 PO; +VERA120T71 PO
[2021-11-21 16:08] LABS: BASO # 0.1 10^3/uL (0.0-0.2); BASO % 0.1 % (0.0-1.0); EOS % 1.6 % (0.0-3.0); HEMATOCRIT 43.7 % (42.0-52.0); HEMOGLOBIN 13.8 g/dl (13.5-17.5); LYMPH # 47.8 10^3/uL (1.5-5.0); LYMPH % 80.3 % (24.0-44.0); MEAN CORPUSCULAR HEMOGLOBIN 29.7 pg (27.0-33.0); MEAN CORPUSCULAR HGB CONC 31.6 g/dl (32.0-36.5); MEAN CORPUSCULAR VOLUME 94.2 fl (80.0-96.0); MONO # 5.6 10^3/uL (0.0-0.8); MONO % 9.5 % (2.0-8.0); NEUTROPHILS # 4.9 10^3/uL (1.5-8.5); NEUTROPHILS % 8.3 % (36.0-66.0); PLATELET COUNT, AUTOMATED 156 10^3/uL (150-450); RED BLOOD COUNT 4.64 10^6/uL (4.30-6.10)
[2021-11-21 16:25] LABS: WHITE BLOOD COUNT 59.5 10^3/uL (4.0-10.0)
[2021-11-21 16:34] LABS: ALBUMIN 3.9 GM/DL (3.2-5.2); ALT/SGPT 32 U/L (12-78); BILIRUBIN,TOTAL 0.6 MG/DL (0.2-1.0); BLOOD UREA NITROGEN 13 MG/DL (7-18); CALCIUM LEVEL 8.9 MG/DL (8.8-10.2); CARBON DIOXIDE LEVEL 28 MEQ/L (21-32); CHLORIDE LEVEL 104 MEQ/L (98-107); CHOLESTEROL LEVEL 123 MG/DL (<200); CHOLESTEROL RISK RATIO 3.324 (<5); CREATININE FOR GFR 1.04 MG/DL (0.70-1.30); GLOMERULAR FILTRATION RATE > 60.0 (>42); GLUCOSE, FASTING 93 MG/DL (70-100); HDL CHOLESTEROL 37 MG/DL (>40); LDL CHOLESTEROL 61 MG/DL (<100); NON-HDL-C 86 MG/DL; POTASSIUM SERUM 3.8 MEQ/L (3.5-5.1); SODIUM LEVEL 139 MEQ/L (136-145); TOTAL PROTEIN 7.4 GM/DL (6.4-8.2); TRIGLYCERIDES LEVEL 127 MG/DL (<150)
[2021-11-21 17:24] LABS: PTH INTACT 39.9 PG/ML (18.5-88.0)
[2021-11-21 17:50] LABS: NEUTROPHILS 9 % (28-66)
[2021-11-21 17:52] LABS: EOSINOPHILS 1 % (0-3); MONOCYTES 6 % (0-5)
[2021-11-21 17:53] LABS: ATYPICAL LYMPH 4 % (0-5); LYMPHOCYTES 80 % (16-44)
[2021-11-21 17:58] LABS: PLATELET ESTIMATE DECREASED (NORMAL); SMUDGE CELLS 2+
== END ==
LOC: M PLALAB 12:16
PROVIDERS: ATTEND Family Medicine
DX: E78.5 Hyperlipidemia, unspecified (principal); C91.10 Chronic lymphocytic leukemia of B-cell type not having achieved remission; E55.9 Vitamin D deficiency, unspecified; Z12.5 Encounter for screening for malignant neoplasm of prostate
CPT/HCPCS: 36415; 80053; 80061; 82306; 82550; 83625; 83970; 85025; 86140; G0103; G0463

== ENCOUNTER → 2022-04-17 | Outpatient (CLI) | payer MEDICARE, OTHER ==
[2022-04-17 15:47] LABS: HEMATOCRIT 45.2 % (42.0-52.0); HEMOGLOBIN 14.5 g/dl (13.5-17.5); MEAN CORPUSCULAR HEMOGLOBIN 30.5 pg (27.0-33.0); MEAN CORPUSCULAR HGB CONC 32.1 g/dl (32.0-36.5); PLATELET COUNT, AUTOMATED 118 10^3/uL (150-450); RED BLOOD COUNT 4.76 10^6/uL (4.30-6.10)
[2022-04-17 16:03] LABS: WHITE BLOOD COUNT 55.1 10^3/uL (4.0-10.0)
[2022-04-17 16:26] LABS: ALBUMIN 4.4 GM/DL (3.2-5.2); ALT/SGPT 34 U/L (12-78); ATYPICAL LYMPH 1 % (0-5); BILIRUBIN,TOTAL 0.6 MG/DL (0.2-1.0); BLOOD UREA NITROGEN 15 MG/DL (7-18); CALCIUM LEVEL 9.7 MG/DL (8.8-10.2); CARBON DIOXIDE LEVEL 30 MEQ/L (21-32); CHLORIDE LEVEL 105 MEQ/L (98-107); CREATININE FOR GFR 1.04 MG/DL (0.70-1.30); FREE T4 1.11 NG/DL (0.76-1.46); GLOMERULAR FILTRATION RATE > 60.0 (>42); GLUCOSE, FASTING 96 MG/DL (70-100); LYMPHOCYTES 90 % (16-44); NEUTROPHILS 9 % (28-66); NT-PRO BNP 87 PG/ML (<450); PLATELET ESTIMATE DECREASED (NORMAL); POTASSIUM SERUM 4.2 MEQ/L (3.5-5.1); SMUDGE CELLS 1+; SODIUM LEVEL 140 MEQ/L (136-145); TOTAL PROTEIN 7.7 GM/DL (6.4-8.2)
[2022-04-20 19:10] LABS: PSA % FREE 16.2 % (.); PSA FREE 0.89 ng/mL; PSA TOTAL 5.5 ng/mL (0.0-4.0)
== END ==
LOC: M PLALAB 12:53
PROVIDERS: ATTEND Family Medicine
DX: C91.10 Chronic lymphocytic leukemia of B-cell type not having achieved remission (principal); E03.9 Hypothyroidism, unspecified; Z12.5 Encounter for screening for malignant neoplasm of prostate

== ENCOUNTER → 2022-09-11 | Outpatient (CLI) | payer MEDICARE, OTHER ==
[2022-09-11 13:56] LABS: HEMATOCRIT 43.2 % (42.0-52.0); HEMOGLOBIN 13.7 g/dl (13.5-17.5); MEAN CORPUSCULAR HGB CONC 31.7 g/dl (32.0-36.5); MEAN CORPUSCULAR VOLUME 94.5 fl (80.0-96.0); PLATELET COUNT, AUTOMATED 107 10^3/uL (150-450); RED BLOOD COUNT 4.57 10^6/uL (4.30-6.10)
[2022-09-11 14:09] LABS: WHITE BLOOD COUNT 60.1 10^3/uL (4.0-10.0)
[2022-09-11 14:41] LABS: ALBUMIN 4.1 GM/DL (3.2-5.2); ALKALINE PHOSPHATASE 109 U/L (45-117); ALT/SGPT 29 U/L (12-78); AST/SGOT 13 U/L (7-37); BILIRUBIN,TOTAL 0.5 MG/DL (0.2-1.0); BLOOD UREA NITROGEN 17 MG/DL (7-18); CALCIUM LEVEL 9.2 MG/DL (8.8-10.2); CARBON DIOXIDE LEVEL 27 MEQ/L (21-32); CHLORIDE LEVEL 102 MEQ/L (98-107); CHOLESTEROL LEVEL 124 MG/DL (<200); CHOLESTEROL RISK RATIO 3.757 (<5); CREATININE FOR GFR 0.97 MG/DL (0.70-1.30); FREE T4 1.15 NG/DL (0.76-1.46); GLOMERULAR FILTRATION RATE > 60.0 (>42); GLUCOSE, FASTING 92 MG/DL (70-100); HDL CHOLESTEROL 33 MG/DL (>40); LDH LACTATE DEHYDROGENASE 155 U/L (87-241); LDL CHOLESTEROL 64 MG/DL (<100); NON-HDL-C 91 MG/DL; NT-PRO BNP 119 PG/ML (<450); POTASSIUM SERUM 3.6 MEQ/L (3.5-5.1); SODIUM LEVEL 135 MEQ/L (136-145); TOTAL PROTEIN 7.1 GM/DL (6.4-8.2); TRIGLYCERIDES LEVEL 134 MG/DL (<150)
[2022-09-11 15:11] LABS: ATYPICAL LYMPH 8 % (0-5); BASOPHILS 1 % (0-1); LYMPHOCYTES 82 % (16-44); MONOCYTES 3 % (0-5); NEUTROPHILS 6 % (28-66)
[2022-09-11 15:16] LABS: PLATELET ESTIMATE DECREASED (NORMAL); SMUDGE CELLS 3+
[2022-09-12 07:07] LABS: APOLIPOPROTEIN B/A-1 RATIO 0.7 ratio (0.0-0.7)
== END ==
LOC: M PLALAB 10:35
PROVIDERS: ATTEND Family Medicine
DX: E78.5 Hyperlipidemia, unspecified (principal); C91.10 Chronic lymphocytic leukemia of B-cell type not having achieved remission; E03.9 Hypothyroidism, unspecified

== ENCOUNTER → 2023-02-18 | Outpatient (CLI) | payer MEDICARE, OTHER ==
[~2023-02-18] MED LIST changes: +FLUT50SP17; -FLUTISP
[2023-02-18 15:56] LABS: HEMATOCRIT 42.9 % (42.0-52.0); HEMOGLOBIN 13.8 g/dl (13.5-17.5); MEAN CORPUSCULAR HEMOGLOBIN 30.7 pg (27.0-33.0); MEAN CORPUSCULAR HGB CONC 32.2 g/dl (32.0-36.5); MEAN CORPUSCULAR VOLUME 95.5 fl (80.0-96.0); PLATELET COUNT, AUTOMATED 118 10^3/uL (150-450); RED BLOOD COUNT 4.49 10^6/uL (4.30-6.10)
[2023-02-18 16:31] LABS: WHITE BLOOD COUNT 65.6 10^3/uL (4.0-10.0)
[2023-02-18 18:06] LABS: ATYPICAL LYMPH 46 % (0-5); EOSINOPHILS 1 % (0-3); LYMPHOCYTES 37 % (16-44); MONOCYTES 2 % (0-5); NEUTROPHILS 14 % (28-66)
[2023-02-18 18:07] LABS: PLATELET ESTIMATE DECREASED (NORMAL)
[2023-02-18 19:47] LABS: LDH LACTATE DEHYDROGENASE 169 U/L (120-246)
[2023-02-18 19:56] LABS: ALBUMIN 4.3 G/DL (3.2-5.2); ALKALINE PHOSPHATASE 94 U/L (46-116); ALT/SGPT 26 U/L (7.0-40); AST/SGOT 20 U/L (<34); BILIRUBIN,TOTAL 0.6 MG/DL (0.3-1.2); BLOOD UREA NITROGEN 19 MG/DL (9-23); CARBON DIOXIDE LEVEL 27 MMOL/L (20-31); CHLORIDE LEVEL 103 MMOL/L (98-107); CREATININE FOR GFR 0.99 MG/DL (0.70-1.30); FREE T4 1.39 NG/DL (0.89-1.76); GLOMERULAR FILTRATION RATE > 60.0 (>42); GLUCOSE, FASTING 91 MG/DL (74-106); POTASSIUM SERUM 4.5 MMOL/L (3.5-5.1); PTH INTACT 44.8 PG/ML (18.5-88.0); SODIUM LEVEL 136 MMOL/L (136-145); THYROID PEROXIDASE ANTIBODY < 28.0 U/ML (<60.0); THYROID STIMULATING HORMONE 2.831 uIU/ML (0.55-4.78); TOTAL 25(OH) VITAMIN D 50.3 NG/ML (20.0-100.0); TOTAL PROTEIN 6.7 G/DL (5.7-8.2)
[2023-02-20 13:08] LABS: ANGIOTENSIN 1 CONVERTING ENZYM 14 U/L (14-82)
== END ==
LOC: M PLALAB 13:12
PROVIDERS: ATTEND Family Medicine
DX: E55.9 Vitamin D deficiency, unspecified (principal); E78.5 Hyperlipidemia, unspecified; C91.10 Chronic lymphocytic leukemia of B-cell type not having achieved remission; E03.9 Hypothyroidism, unspecified; L92.0 Granuloma annulare; Z12.5 Encounter for screening for malignant neoplasm of prostate; Z79.899 Other long term (current) drug therapy

== ENCOUNTER → 2023-02-19 | Outpatient (REF) | payer MEDICARE, OTHER | LOC: M SFHCPLAZ 17:52 | PROVIDERS: ATTEND Family Medicine | DX: L30.8 Other specified dermatitis (principal) ==

== ENCOUNTER → 2023-07-29 | Outpatient (CLI) | payer MEDICARE, OTHER ==
[2023-07-29 15:55] LABS: HEMOGLOBIN 13.3 g/dl (13.5-17.5); MEAN CORPUSCULAR HGB CONC 31.7 g/dl (32.0-36.5); MEAN CORPUSCULAR VOLUME 94.6 fl (80.0-96.0); PLATELET COUNT, AUTOMATED 114 10^3/uL (150-450); RED BLOOD COUNT 4.44 10^6/uL (4.30-6.10)
[2023-07-29 16:01] LABS: WHITE BLOOD COUNT 71.3 10^3/uL (4.0-10.0)
[2023-07-29 16:26] LABS: LDH LACTATE DEHYDROGENASE 168 U/L (120-246)
[2023-07-29 16:27] LABS: ALBUMIN 4.2 G/DL (3.2-5.2); ALKALINE PHOSPHATASE 108 U/L (46-116); ALT/SGPT 23 U/L (7.0-40); AST/SGOT 13 U/L (<34); BILIRUBIN,TOTAL 0.6 MG/DL (0.3-1.2); BLOOD UREA NITROGEN 13 MG/DL (9-23); CALCIUM LEVEL 8.6 MG/DL (8.3-10.6); CARBON DIOXIDE LEVEL 28 MMOL/L (20-31); CHLORIDE LEVEL 101 MMOL/L (98-107); CHOLESTEROL LEVEL 99 MG/DL (<200); CHOLESTEROL RISK RATIO 3.53 (<5); CREATININE FOR GFR 1.03 MG/DL (0.70-1.30); FREE T4 1.49 NG/DL (0.89-1.76); GLOMERULAR FILTRATION RATE > 60.0 (>35); GLUCOSE, FASTING 90 MG/DL (74-106); LDL CHOLESTEROL 49.4 MG/DL (<100); POTASSIUM SERUM 4.4 MMOL/L (3.5-5.1); SODIUM LEVEL 136 MMOL/L (136-145); THYROID STIMULATING HORMONE 2.286 uIU/ML (0.55-4.78); TOTAL PROTEIN 6.7 G/DL (5.7-8.2); TRIGLYCERIDES LEVEL 108 MG/DL (<150)
[2023-07-29 18:54] LABS: ATYPICAL LYMPH 26 % (0-5); BASOPHILS 1 % (0-1); EOSINOPHILS 2 % (0-3); LYMPHOCYTES 65 % (16-44); NEUTROPHILS 6 % (28-66)
[2023-07-29 18:55] LABS: PLATELET ESTIMATE DECREASED (NORMAL); SMUDGE CELLS 3+
== END ==
LOC: M PLALAB 13:11
PROVIDERS: ATTEND Family Medicine
DX: C91.10 Chronic lymphocytic leukemia of B-cell type not having achieved remission (principal); E03.9 Hypothyroidism, unspecified; E78.5 Hyperlipidemia, unspecified

== ENCOUNTER → 2023-12-16 | Outpatient (REF) | payer MEDICARE, OTHER ==
[~2023-12-16] MED LIST changes: -FLUT50SP17; +FLUTISP
== END ==
LOC: M SFHCPLAZ 13:04
PROVIDERS: ATTEND Family Medicine
DX: E03.9 Hypothyroidism, unspecified (principal); C91.10 Chronic lymphocytic leukemia of B-cell type not having achieved remission; E55.9 Vitamin D deficiency, unspecified; Z12.5 Encounter for screening for malignant neoplasm of prostate

== ENCOUNTER → 2023-12-16 | Outpatient (CLI) | payer MEDICARE, OTHER ==
[2023-12-16 16:03] LABS: HEMATOCRIT 42.6 % (42.0-52.0); HEMOGLOBIN 13.7 g/dl (13.5-17.5); MEAN CORPUSCULAR HEMOGLOBIN 30.3 pg (27.0-33.0); MEAN CORPUSCULAR HGB CONC 32.2 g/dl (32.0-36.5); MEAN CORPUSCULAR VOLUME 94.2 fl (80.0-96.0); PLATELET COUNT, AUTOMATED 112 10^3/uL (150-450); RED BLOOD COUNT 4.52 10^6/uL (4.30-6.10)
[2023-12-16 16:26] LABS: PSA SCREENING 5.02 NG/ML (< 4.00)
[2023-12-16 16:27] LABS: URIC ACID 6.1 MG/DL (3.7-9.2)
[2023-12-16 16:29] LABS: LDH LACTATE DEHYDROGENASE 150 U/L (120-246)
[2023-12-16 16:30] LABS: FREE T4 1.36 NG/DL (0.89-1.76); THYROID STIMULATING HORMONE 2.892 uIU/ML (0.55-4.78)
[2023-12-16 16:32] LABS: TOTAL 25(OH) VITAMIN D 55.4 NG/ML (20.0-100.0)
[2023-12-16 16:53] LABS: ALKALINE PHOSPHATASE 112 U/L (46-116); ALT/SGPT 24 U/L (7.0-40); AST/SGOT 16 U/L (<34); BILIRUBIN,TOTAL 0.6 MG/DL (0.3-1.2); BLOOD UREA NITROGEN 14 MG/DL (9-23); CALCIUM LEVEL 8.8 MG/DL (8.3-10.6); CARBON DIOXIDE LEVEL 29 MMOL/L (20-31); CHLORIDE LEVEL 106 MMOL/L (98-107); CREATININE FOR GFR 1.06 MG/DL (0.70-1.30); GLOMERULAR FILTRATION RATE > 60.0 (>35); GLUCOSE, FASTING 97 MG/DL (74-106); POTASSIUM SERUM 4.2 MMOL/L (3.5-5.1); PTH INTACT 54.2 PG/ML (18.5-88.0); SODIUM LEVEL 139 MMOL/L (136-145); TOTAL PROTEIN 6.5 G/DL (5.7-8.2)
[2023-12-16 17:23] LABS: ATYPICAL LYMPH 54 % (0-5); EOSINOPHILS 1 % (0-3); LYMPHOCYTES 30 % (16-44); MONOCYTES 1 % (0-5); NEUTROPHILS 14 % (28-66)
[2023-12-16 17:24] LABS: PLATELET ESTIMATE DECREASED (NORMAL)
== END ==
LOC: M PLALAB 13:30
PROVIDERS: ATTEND Family Medicine
DX: C91.10 Chronic lymphocytic leukemia of B-cell type not having achieved remission (principal); Z12.5 Encounter for screening for malignant neoplasm of prostate; E55.9 Vitamin D deficiency, unspecified; E03.9 Hypothyroidism, unspecified
CPT/HCPCS: 36415; 80053; 82306; 83615; 83970; 84439; 84443; 84550; 85025; G0103

== ENCOUNTER 2024-06-01 07:21 | Day surgery (SDC) | payer MEDICARE, OTHER ==
[~2024-06-01] VITALS: Ht 172.7 cm; Wt 849.1 kg
[~2024-06-01 07:21] MED LIST changes: +PRES1CAP PO; +propofoL 200 MG/20 ML VIAL As Ordered ONE
[2024-06-01] MEDS: NS 1,000 ML IV ONE (07:34)
[2024-06-01 09:37] VITALS: BP 146/66; O2SAT 98
== END 2024-06-01 09:37 | disposition home or self-care (01) ==
LOC: M OPP 07:21
PROVIDERS: ATTEND Internal Medicine Gastroenterology
DX: Z12.11 Encounter for screening for malignant neoplasm of colon (principal); Z86.010 Personal history of colon polyps; D12.3 Benign neoplasm of transverse colon; K64.8 Other hemorrhoids; K57.30 Diverticulosis of large intestine without perforation or abscess without bleeding; E03.9 Hypothyroidism, unspecified; Z79.02 Long term (current) use of antithrombotics/antiplatelets; Z79.1 Long term (current) use of non-steroidal anti-inflammatories (NSAID); Z79.52 Long term (current) use of systemic steroids; Z79.82 Long term (current) use of aspirin; Z79.890 Hormone replacement therapy; Z79.899 Other long term (current) drug therapy; Z88.1 Allergy status to other antibiotic agents; Z88.2 Allergy status to sulfonamides

== ENCOUNTER → 2024-07-09 | Outpatient (REF) | payer MEDICARE, OTHER ==
[~2024-07-09] MED LIST changes: -propofoL 200 MG/20 ML VIAL As Ordered ONE
== END ==
LOC: M SFHCPLAZ 09:50
PROVIDERS: ATTEND Family Medicine
DX: E03.9 Hypothyroidism, unspecified (principal); C91.10 Chronic lymphocytic leukemia of B-cell type not having achieved remission; E55.9 Vitamin D deficiency, unspecified; Z12.5 Encounter for screening for malignant neoplasm of prostate; E78.5 Hyperlipidemia, unspecified

== ENCOUNTER → 2024-07-09 | Outpatient (CLI) | payer MEDICARE, OTHER ==
[2024-07-09 13:13] LABS: PSA SCREENING 6.36 NG/ML (< 4.00)
[2024-07-09 13:16] LABS: HEMATOCRIT 38.7 % (42.0-52.0); HEMOGLOBIN 12.4 g/dl (13.5-17.5); MEAN CORPUSCULAR HEMOGLOBIN 30.5 pg (27.0-33.0); MEAN CORPUSCULAR VOLUME 95.1 fl (80.0-96.0); PLATELET COUNT, AUTOMATED 118 10^3/uL (150-450); RED BLOOD COUNT 4.07 10^6/uL (4.30-6.10); URIC ACID 5.4 MG/DL (3.7-9.2)
[2024-07-09 13:18] LABS: ALBUMIN 4.1 G/DL (3.2-5.2); ALKALINE PHOSPHATASE 117 U/L (46-116); ALT/SGPT 27 U/L (7.0-40); AST/SGOT 13 U/L (<34); BILIRUBIN,TOTAL 0.6 MG/DL (0.3-1.2); BLOOD UREA NITROGEN 19 MG/DL (9-23); CALCIUM LEVEL 9.3 MG/DL (8.3-10.6); CARBON DIOXIDE LEVEL 28 MMOL/L (20-31); CHLORIDE LEVEL 105 MMOL/L (98-107); CHOLESTEROL LEVEL 104 MG/DL (<200); CHOLESTEROL RISK RATIO 4.33 (<5); FREE T4 1.54 NG/DL (0.89-1.76); GLOMERULAR FILTRATION RATE > 60.0 (>35); GLUCOSE, FASTING 88 MG/DL (74-106); LDH LACTATE DEHYDROGENASE 147 U/L (120-246); LDL CHOLESTEROL 45.2 MG/DL (<100); POTASSIUM SERUM 4.2 MMOL/L (3.5-5.1); SODIUM LEVEL 138 MMOL/L (136-145); THYROID STIMULATING HORMONE 3.764 uIU/ML (0.55-4.78); TOTAL PROTEIN 6.9 G/DL (5.7-8.2); TRIGLYCERIDES LEVEL 174 MG/DL (<150)
[2024-07-09 14:38] LABS: WHITE BLOOD COUNT 97.5 10^3/uL (4.0-10.0)
[2024-07-09 14:42] LABS: ATYPICAL LYMPH 2 % (0-5); EOSINOPHILS 2 % (0-3); LYMPHOCYTES 89 % (16-44); MONOCYTES 2 % (0-5); NEUTROPHILS 5 % (28-66); PLATELET ESTIMATE DECREASED (NORMAL); SMUDGE CELLS 2+
== END ==
LOC: M PLALAB 09:57
PROVIDERS: ATTEND Family Medicine
DX: E03.9 Hypothyroidism, unspecified (principal); C91.10 Chronic lymphocytic leukemia of B-cell type not having achieved remission; E55.9 Vitamin D deficiency, unspecified; Z12.5 Encounter for screening for malignant neoplasm of prostate; E78.5 Hyperlipidemia, unspecified

== ENCOUNTER → 2024-07-31 | Outpatient (CLI) | payer MEDICARE, OTHER ==
[~2024-07-31] MED LIST changes: +GASTROGRAFIN SOLUTION 30ML As Ordered ONE; +ISOVUE-370 76% 100ML VIAL As Ordered ONE
== END ==
LOC: M RAD 11:35
PROVIDERS: ATTEND Family Medicine
DX: C91.10 Chronic lymphocytic leukemia of B-cell type not having achieved remission (principal); N20.0 Calculus of kidney; N40.0 Benign prostatic hyperplasia without lower urinary tract symptoms; R16.1 Splenomegaly, not elsewhere classified; K76.0 Fatty (change of) liver, not elsewhere classified
CPT/HCPCS: 71260; 74178; Q9963; Q9967

== ENCOUNTER → 2025-02-04 | Outpatient (CLI) | payer MEDICARE, OTHER ==
[~2025-02-04] MED LIST changes: -GASTROGRAFIN SOLUTION 30ML As Ordered ONE; -ISOVUE-370 76% 100ML VIAL As Ordered ONE
[2025-02-04 16:02] LABS: HEMOGLOBIN 13.1 g/dl (13.5-17.5); MEAN CORPUSCULAR HEMOGLOBIN 29.6 pg (27.0-33.0); MEAN CORPUSCULAR VOLUME 92.6 fl (80.0-96.0); PLATELET COUNT, AUTOMATED 123 10^3/uL (150-450); RED BLOOD COUNT 4.43 10^6/uL (4.30-6.10)
[2025-02-04 16:36] LABS: ALBUMIN 4.4 G/DL (3.2-5.2); ALKALINE PHOSPHATASE 120 U/L (40-129); ALT/SGPT 21 U/L (7.0-40); AST/SGOT 15 U/L (<34); BILIRUBIN,TOTAL 0.7 MG/DL (0.3-1.2); BLOOD UREA NITROGEN 17 MG/DL (9-23); CALCIUM LEVEL 9.3 MG/DL (8.3-10.6); CARBON DIOXIDE LEVEL 27 MMOL/L (20-31); CHLORIDE LEVEL 100 MMOL/L (98-107); CREATININE FOR GFR 1.07 MG/DL (0.70-1.30); GLOMERULAR FILTRATION RATE > 60.0 (>35); GLUCOSE, FASTING 95 MG/DL (74-106); LDH LACTATE DEHYDROGENASE 196 U/L (120-246); POTASSIUM SERUM 4.2 MMOL/L (3.5-5.1); SODIUM LEVEL 140 MMOL/L (136-145); TOTAL PROTEIN 7.3 G/DL (5.7-8.2)
[2025-02-04 16:39] LABS: PSA SCREENING 6.11 NG/ML (< 4.00)
[2025-02-04 16:43] LABS: FREE T4 1.57 NG/DL (0.89-1.76); THYROID STIMULATING HORMONE 4.503 uIU/ML (0.55-4.78)
[2025-02-04 16:59] LABS: WHITE BLOOD COUNT 97.2 10^3/uL (4.0-10.0)
[2025-02-04 17:50] LABS: ATYPICAL LYMPH 23 % (0-5); LYMPHOCYTES 67 % (16-44); MONOCYTES 1 % (0-5); NEUTROPHILS 9 % (28-66); PLATELET ESTIMATE DECREASED (NORMAL)
[2025-02-04 17:51] LABS: SMUDGE CELLS 1+
== END ==
LOC: M PLALAB 14:03
PROVIDERS: ATTEND Family Medicine
DX: C91.10 Chronic lymphocytic leukemia of B-cell type not having achieved remission (principal); E55.9 Vitamin D deficiency, unspecified; E03.9 Hypothyroidism, unspecified; Z12.5 Encounter for screening for malignant neoplasm of prostate; E78.5 Hyperlipidemia, unspecified
CPT/HCPCS: 36415; 80053; 83615; 83880; 84439; 84443; 84550; 85025; G0103

== ENCOUNTER → 2025-09-17 | Outpatient (CLI) | payer MEDICARE, OTHER ==
[~2025-09-17] MED LIST changes: -LEVO137C PO; +LEVO137C2 PO
[2025-09-17 10:41] LABS: PLATELET COUNT, AUTOMATED 103 10^3/uL (150-450); PSA SCREENING 6.08 NG/ML (< 4.00)
[2025-09-17 10:43] LABS: LDH LACTATE DEHYDROGENASE 170.0 U/L (120-246)
[2025-09-17 10:44] LABS: ALT/SGPT 26.0 U/L (7.0-40); AST/SGOT 21.0 U/L (<34); CALCIUM LEVEL 8.9 MG/DL (8.3-10.6); CARBON DIOXIDE LEVEL 27.0 MMOL/L (20-31); CHLORIDE LEVEL 104.0 MMOL/L (98-107); CHOLESTEROL LEVEL 96.0 MG/DL (<200); CHOLESTEROL RISK RATIO 4.24 (<5); CREATININE FOR GFR 1.13 MG/DL (0.70-1.30); FREE T4 1.49 NG/DL (0.89-1.76); GLOMERULAR FILTRATION RATE 64.9 (>35); IRON (FE) 75.0 UG/DL (65-175); LDL CHOLESTEROL 39.0 MG/DL (<100); NON-HDL-C 73.4 MG/DL; PERCENT SATURATION 23.8 % (19.7-50.0); POTASSIUM SERUM 4.0 MMOL/L (3.5-5.1); PTH INTACT 33.3 PG/ML (18.5-88.0); SODIUM LEVEL 141.0 MMOL/L (136-145); TRIGLYCERIDES LEVEL 172.0 MG/DL (<150)
[2025-09-17 10:46] LABS: TOTAL 25(OH) VITAMIN D 60.4 NG/ML (20.0-100.0)
[2025-09-17 11:15] LABS: LYMPHOCYTES 92 % (16-44); MONOCYTES 2 % (0-5); NEUTROPHILS 6 % (28-66)
[2025-09-17 11:19] LABS: PLATELET ESTIMATE DECREASED (NORMAL)
== END ==
LOC: M PLALAB 08:35
PROVIDERS: ATTEND Family Medicine
DX: C91.10 Chronic lymphocytic leukemia of B-cell type not having achieved remission (principal); E55.9 Vitamin D deficiency, unspecified; E03.9 Hypothyroidism, unspecified; Z12.5 Encounter for screening for malignant neoplasm of prostate
CPT/HCPCS: 36415; 80053; 80061; 82306; 82728; 83550; 83615; 83970; 84439; 84443; 84550; 85025; G0103

== ENCOUNTER → 2025-11-15 | Outpatient (CLI) | payer MEDICARE, OTHER ==
[2025-11-15 18:19] LABS: IRON (FE) 77.0 UG/DL (65-175); PERCENT SATURATION 24.4 % (19.7-50.0)
[2025-11-15 18:20] LABS: FREE T4 1.6 NG/DL (0.89-1.76)
[2025-11-15 18:21] LABS: VITAMIN B12 LEVEL 884.0 PG/ML (211-911)
== END ==
LOC: M PLALAB 15:34
PROVIDERS: ATTEND Nurse Practitioner Family
DX: D64.9 Anemia, unspecified (principal); E55.9 Vitamin D deficiency, unspecified; E53.8 Deficiency of other specified B group vitamins; E03.9 Hypothyroidism, unspecified